=== PATIENT | male | born 1995 | race Caucasian/White ===

== ENCOUNTER → 2020-12-09 | Outpatient (CLI) | payer OTHER | LOC: M CARPUL 10:21 | PROVIDERS: ATTEND Physician Assistant | DX: R06.2 Wheezing (principal) ==

== ENCOUNTER → 2020-12-20 | Outpatient (REF) | payer OTHER ==
[2020-12-20 13:53] LABS: GC DNA AMPLIFICATION NEGATIVE (NEGATIVE)
== END ==
LOC: M LAB REF 11:52
PROVIDERS: ATTEND Physician Assistant
DX: R30.0 Dysuria (principal); Z20.2 Contact with and (suspected) exposure to infections with a predominantly sexual mode of transmission